=== PATIENT | male | born 1945 | race Caucasian/White ===

== ENCOUNTER 2016-11-24 14:08 | Day surgery (SDC) | payer MEDICARE ==
[~2016-11-24] VITALS: Ht 180.3 cm; Wt 96.2 kg
[~2016-11-24 14:08] MED LIST: AMT25T PO; ASPI-973 PO; CARV12.52 PO; CYCL1DRO OP; DILT120T3 PO; LIP40 PO; LISI10TA PO; METF500T4 PO; OMEG1CAP99 PO; Sodium Biphos-Phos 133 mL Enema RECTAL PRN; Sodium Chloride LOK Flush 10 mL Syringe IV PRN; fentaNYL-PF 50 mCg/mL 2 mL Inj IVPUSH PRN
[2016-11-24 14:24] VITALS: BP 167/91; PULSE 70; RESP 16; O2SAT 100
[2016-11-24] MEDS: 0.9% Sodium Chloride 1,000 ML IV SCH ×2 (15:36→15:53)
[2016-11-24 16:02] VITALS: BP 148/74; PULSE 67; RESP 16; O2SAT 100
[2016-11-24 16:15] VITALS: BP 141/74; PULSE 68; RESP 16; O2SAT 99
--- NOTE | 2016-11-24 16:43 | ENDO ---
[address] [address] ENDOSCOPY PROCEDURE PATIENT: MELONY RUCKER : 1945 MR#: [id number] ADMIT: 11/24/2016 JOB ID: [id number] PREPROCEDURE DIAGNOSIS: Personal history of colon polyps. POSTPROCEDURE DIAGNOSIS: Personal history of colon polyps. Rectal polyp x1, sigmoid polyps x2. PROCEDURE: Colonoscopy with biopsies. ENDOSCOPIST: Norbert Bates MD MEDICATIONS: Versed 4 mg, fentanyl 100 mcg. INDICATIONS: The patient is a 71-year-old man who underwent colonoscopy in [address] Umair Nolan. 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 No other abnormalities were seen. He was recommended to have repeat colonoscopy in three years. He has no blood in the stool, no unplanned weight loss, no abdominal pains. After a discussion of the risks and benefits, he agreed to proceed with colonoscopy. FINDINGS: There was no evidence of residual polyp in the right colon. Several tiny polyps were found, two in the distal sigmoid colon and one in the proximal rectum. These may be hyperplastic polyps, but they were biopsied and sent for permanent pathology. DESCRIPTION OF PROCEDURE: Procedural sedation was achieved. The patient was connected to hemodynamic monitoring, pulse oximetry, and capnography. After digital rectal exam, the PCF H 180 AL colonoscope was inserted and passed under visualization until the ileocecal valve and appendiceal orifice were visualized and photo documented. The terminal ileum could not be intubated. The quality of the prep was good. The scope was withdrawn and carefully retroflexed in the rectum. In the distal sigmoid colon there were two separate, very small, fairly flat polyps which were removed with cold forceps and sent for permanent pathology. These were on the order of 1-2 mm in diameter. They were sent for permanent pathology. In the proximal rectum a similar polyp measuring approximately 2 mm was removed with cold forceps and sent for permanent pathology. Retroflexion revealed no other abnormalities. The scope was withdrawn and the procedure terminated. He tolerated the entire procedure well. RECOMMENDATIONS: A letter with biopsy results will be mailed to the patient. If the polyps today are hyperplastic, then recommend a five year interval. If any of those are tubular adenomas, then recommend a three year interval.
--- NOTE | 2016-11-26 16:29 | PATH ---
SURGICAL PATHOLOGY Attending Physician:Stuart Thorne CASE STATUS: Signed Out PATIENT NAME: MELONY RUCKER PID: [id number] : 1945 DATE COLLECTED:11/24/2016 00:00 SPECIMEN: 1: Rectum, Biopsy 2: Colon, Polyp CLINICAL HISTORY: HX COLON POLYPS, RECTAL-SIGMOID POLYPS 1). RECTAL POLYP 2). SIGMOID POLYPS FINAL DIAGNOSIS: 1.RECTUM, POLYP, BIOPSY: HYPERPLASTIC POLYP. 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 ICD10 K63.5 GROSS DESCRIPTION: Received are two formalin-filled containers, both labeled with the patient' s name: 1. Received in formalin, labeled with the patient' s name and "rectal polyp", is one fragment of gonzalez, soft tissue measuring 0.3 x 0.2 x 0.2 cm. The fragment is totally submitted in cassette 1A. 2. Received in formalin, labeled with the patient' s name and "sigmoid polyps", are four fragments of gonzalez, soft tissue ranging in size from 0.1 x 0.1 x 0.1 cm to 0.2 x 0.1 x 0.1 cm. All fragments are totally submitted in cassette 2A. ([id number]) MICRO DESCRIPTION: See diagnosis. ICD-9 CODES: CPT CODES: 1: 37790 2: 75153 Electronically Signed Out Donna Reyez MD [facility] [address], [place] [address] Technical component performed at [facility], [facility] [address], [address]
== END 2016-11-24 23:59 | disposition home or self-care (01) ==
LOC: END 14:08
PROVIDERS: ATTEND Student in an Organized Health Care Education/Training Program
DX: Z12.11 Encounter for screening for malignant neoplasm of colon (principal); K63.5 Polyp of colon; I10 Essential (primary) hypertension; I11.9 Hypertensive heart disease without heart failure; Z86.010 Personal history of colon polyps; Z79.82 Long term (current) use of aspirin; Z79.899 Other long term (current) drug therapy; Z79.84 Long term (current) use of oral hypoglycemic drugs; Z88.8 Allergy status to other drugs, medicaments and biological substances; Z87.891 Personal history of nicotine dependence
CPT/HCPCS: 45380; 99153; G0500; J2250; J3010; J7030